=== PATIENT | male | born 1980 | race Caucasian/White ===

== ENCOUNTER 2018-06-09 02:28 | Emergency (ER) | payer BC ==
[2018-06-09] MEDS ORDERED: Ketorolac 60 MG/2 ML SDV IM ONE (02:41)
[2018-06-09] MEDS ORDERED: Cyclobenzaprine 10 MG Tab PO ONE (02:42)
[2018-06-09] MEDS ORDERED: Acetaminophen 325 MG Tab PO ONE (03:23)
--- NOTE | 2018-06-09 03:23 | EDM.PDOC ---
ED HPI GENERAL MEDICAL PROBLEM - General Chief Complaint: Back Pain or Injury Stated Complaint: SEVERE BACK PAIN Time Seen by Provider: 06/09/18 02:30 Source of Information: Reports: Patient History Limitations: Reports: No Limitations - History of Present Illness INITIAL COMMENTS - FREE TEXT/NARRATIVE: HISTORY AND PHYSICAL: History of present illness: 37-year-old male presenting to emergency department with chief complaint of lower back and with past medical history of lumbar disc herniation. Patient states that approximately 45 minutes ago he awoke and twisted to pet his dog and immediately felt excruciating left-sided lower back pain that radiated into his left lower leg. States it is burning and constant. 10 out of 10. Denies any bowel or bladder incontinence. Denies any loss of sensation. Patient does have a history of lumbar disc herniation and I was able to review his lumbar MRI in 2015 showing a large broad-based disc perfusion with mild spinal canal stenosis at L4-L5. States that he has been using "herbal" muscle relaxer but no other medications. On exam patient has no significant step-offs but significant paraspinal muscle spasms specifically from L2-S1 left-sided. No other focal neurologic deficits noted. Review of systems: As per history of present illness and below otherwise all systems reviewed and negative. Past medical history: As per history of present illness and as reviewed below otherwise noncontributory. Surgical history: As per history of present illness and as reviewed below otherwise noncontributory. Social history: No reported history of drug or alcohol abuse. Family history: As per history of present illness and as reviewed below otherwise noncontributory. Physical exam: See above H&P HEENT: Atraumatic, normocephalic, pupils reactive, negative for conjunctival pallor or scleral icterus, mucous membranes moist, throat clear, neck supple, nontender, trachea midline. Lungs: Clear to auscultation, breath sounds equal bilaterally, chest nontender. Heart: S1S2, regular, negative for clicks, rubs, or JVD. Abdomen: Soft, nondistended, nontender. Negative for masses or hepatosplenomegaly. Negative for costovertebral tenderness. Pelvis: Stable nontender. Genitourinary: Deferred. Rectal: Deferred. Extremities: Atraumatic, negative for cords or calf pain. Neurovascular unremarkable. Neuro: Awake, alert, oriented. Cranial nerves II through XII unremarkable. Cerebellum unremarkable. Motor and sensory unremarkable throughout. Exam nonfocal. Diagnostics: [] Therapeutics: Portable 60 mg IM 1 Flexeril 10 mg by mouth 1, prescription for Flexeril 10 mg by mouth 3 times a day #30 Diclofenac 100 mg PO x 1 Acetaminophen 650mg PO x 1 Holden 10-325mg PO X1, prescription for Holden 5-325mg PO q4-6 hrs #10 Impression: Lumbar back pain with radiculopathy left lower extremity Paraspinal muscle spasms History of lumbar disc herniation Plan: Initially patient did not want any narcotics secondary to driving. However his pain continued to not be relieved even with multiple different medications. He did contact his who was going to pick him up so we did give him 10 mg Holden by mouth which did help with his pain. He was discharge in good condition with instructions to call his primary care provider Dr. Lipscomb tomorrow morning in scheduling follow-up appointment. He most likely would benefit for a repeat MRI secondary to his worsening symptoms. He did not have any bowel or bladder incontinence. He was discharged with a prescription for Flexeril 10 mg by mouth 3 times a day #30. He was instructed to return to emergency department if any new or worsening symptoms. Definitive disposition and diagnosis as appropriate pending reevaluation and review of above. Lower Back Pain Score (Numeric/FACES): 9 - Related Data Allergies Allergy/AdvReac Type Severity Reaction Status Date / Time Penicillins Allergy Cannot Verified 06/09/18 02:38 Remember Home Meds: Home Meds . [No Known Home Meds] 06/09/18 [History] Past Medical History - Past Health History Medical/Surgical History: Denies Medical/Surgical History Musculoskeletal History: Reports: Back Pain, Chronic - Infectious Disease History Infectious Disease History: Reports: Chicken Pox - Past Surgical History Head Surgeries/Procedures: Reports: None Social & Family History - Tobacco Use Smoking Status *Q: Never Smoker ED ROS GENERAL - Review of Systems Review Of Systems: ROS reveals no pertinent complaints other than HPI. ED EXAM, GENERAL - Physical Exam Exam: See Below Course - Vital Signs Last Recorded V/S: Last Vital Signs Temp 96.9 F 06/09/18 02:36 Pulse 66 06/09/18 02:36 Resp 20 06/09/18 02:36 BP 146/99 H 06/09/18 02:36 Pulse Ox 99 06/09/18 02:36 - Orders/Labs/Meds Orders: Active Orders 24 hr Category Date Time Status Diclofenac Sodium [Voltaren] Med 06/09/18 03:24 Once 100 mg PO ONETIME ONE Medication Orders Diclofenac Sodium (Voltaren) 100 mg PO ONETIME ONE Stop: 06/09/18 03:25 Meds: Medications Generic Name Dose Route Start Last Admin Trade Name Freq PRN Reason Stop Dose Admin Diclofenac Sodium 100 mg 06/09/18 03:24 Voltaren PO 06/09/18 03:25 ONETIME ONE Discontinued Medications Generic Name Dose Route Start Last Admin Trade Name Freq PRN Reason Stop Dose Admin Acetaminophen 650 mg 06/09/18 03:23 Tylenol PO 06/09/18 03:24 NOW ONE Cyclobenzaprine HCl 10 mg 06/09/18 02:42 06/09/18 02:48 Flexeril PO 06/09/18 02:43 10 mg ONETIME ONE Administration Ketorolac Tromethamine 60 mg 06/09/18 02:41 06/09/18 02:48 Toradol IM 06/09/18 02:42 60 mg ONETIME ONE Administration Departure - Departure Time of Disposition: 03:41 Disposition: Home, Self-Care 01 Condition: Good Clinical Impression: Lumbar back pain with radiculopathy affecting left lower extremity - Discharge Information Referrals: Edwin Lipscomb MD [Primary Care Provider] - Forms: ED Department Discharge Additional Instructions: My general discharge The following information is given to patients seen in the emergency department who are being discharged to home. This information is to outline your options for follow-up care. We provide all patients seen in our emergency department with a follow-up referral. The need for follow-up, as well as the timing and circumstances, are variable depending upon the specifics of your emergency department visit. If you don't have a primary care physician on staff, we will provide you with a referral. We always advise you to contact your personal physician following an emergency department visit to inform them of the circumstance of the visit and for follow-up with them and/or the need for any referrals to a consulting specialist. The emergency department will also refer you to a specialist when appropriate. This referral assures that you have the opportunity for follow-up care with a specialist. All of these measure are taken in an effort to provide you with optimal care, which includes your follow-up. Under all circumstances we always encourage you to contact your private physician who remains a resource for coordinating your care. When calling for follow-up care, please make the office aware that this follow-up is from your recent emergency room visit. If for any reason you are refused follow-up, please contact the [facility] Emergency Department at and asked to speak to the emergency department charge nurse. [address] [address] Call and schedule appointment with Dr. Lipscomb tomorrow as we discussed. Be sure to tell them that you were seen in the emergency department and they wish for you to be followed up as soon as possible. Take medication as prescribed. Return to emergency department if any new or worsening symptoms as we discussed. - My Orders Last 24 Hours: My Active Orders 06/09/18 03:24 Diclofenac Sodium [Voltaren] 100 mg PO ONETIME ONE - Assessment/Plan Last 24 Hours: My Active Orders 06/09/18 03:24 Diclofenac Sodium [Voltaren] 100 mg PO ONETIME ONE
[2018-06-09] MEDS ORDERED: Diclofenac Sodium 50 MG Tab.EC PO ONE (03:24)
[2018-06-09] MEDS ORDERED: Acetaminophen 325 MG Tab ONE (03:34)
[2018-06-09] MEDS ORDERED: Acetaminophen/HYDROcodone 325-10 MG Tab PO ONE (03:35)
[2018-06-09 03:52] VITALS: BP 128/86
== END 2018-06-09 03:55 | disposition home or self-care (01) ==
LOC: MW.ED 02:28
DX: M54.16 Radiculopathy, lumbar region (principal); M62.830 Muscle spasm of back; Z88.0 Allergy status to penicillin
CPT/HCPCS: 96372; 99283; A9270; J1885

== ENCOUNTER 2019-07-11 09:21 | Emergency (ER) | payer BC ==
[2019-07-11 09:31] VITALS: BP 131/73; PULSE 96
--- NOTE | 2019-07-11 10:08 | CR ---
INDICATION: Pain, injury. TECHNIQUE: Three views. FINDINGS: No radiographically visible fracture/dislocation. No acute osseous abnormality is identified. Mild soft tissue swelling about the wrist. Bone density is normal. IMPRESSION: No evidence of fracture. Soft tissue swelling is present. If signs/symptoms continue, and if clinically indicated, consider delayed/repeat views. Dictated by Harlan Kerr MD @ Jul 11 2019 10:06AM Signed by Dr. Harlan Kerr @ Jul 11 2019 10:07AM
--- NOTE | 2019-07-11 10:14 | EDM.PDOC ---
ED HPI GENERAL MEDICAL PROBLEM - General Chief Complaint: Upper Extremity Injury/Pain Stated Complaint: SWELLING AND PAIN LEFT WRIST Time Seen by Provider: 07/11/19 09:56 - History of Present Illness INITIAL COMMENTS - FREE TEXT/NARRATIVE: HISTORY AND PHYSICAL: History of present illness: Patient is a 38-year-old white male presents with a concern of left wrist pain patient noted a tender nodule in the volar aspect medially of his left wrist he denies any direct trauma. Review of systems: As per history of present illness and below otherwise all systems reviewed and negative. Past medical history: As per history of present illness and as reviewed below otherwise noncontributory. Surgical history: As per history of present illness and as reviewed below otherwise noncontributory. Social history: No reported history of drug or alcohol abuse. Family history: As per history of present illness and as reviewed below otherwise noncontributory. Physical exam: HEENT: Atraumatic, normocephalic, pupils reactive, negative for conjunctival pallor or scleral icterus, mucous membranes moist, throat clear, neck supple, nontender, trachea midline. Lungs: Clear to auscultation, breath sounds equal bilaterally, chest nontender. Heart: S1S2, regular, negative for clicks, rubs, or JVD. Abdomen: Soft, nondistended, nontender. Negative for masses or hepatosplenomegaly. Negative for costovertebral tenderness. Pelvis: Stable nontender. Genitourinary: Deferred. Rectal: Deferred. Extremities: Left wrist is tender nodule on the volar aspect medially consistent with likely ganglionic cyst there is no snuffbox tenderness neurovascular exams unremarkable Neuro: Awake, alert, oriented. Cranial nerves II through XII unremarkable. Cerebellum unremarkable. Motor and sensory unremarkable throughout. Exam nonfocal. Diagnostics: X-ray left wrist Therapeutics: Velcro splint Impression: #1 left wrist pain #2 nodule left wrist probable ganglionic cyst Definitive disposition and diagnosis as appropriate pending reevaluation and review of above. Left Wrist Pain Score (Numeric/FACES): 4 - Related Data Allergies Allergy/AdvReac Type Severity Reaction Status Date / Time Penicillins Allergy Cannot Verified 07/11/19 09:28 Remember Home Meds: Home Meds . [No Known Home Meds] 06/09/18 [History] Past Medical History - Past Health History Medical/Surgical History: Denies Medical/Surgical History Musculoskeletal History: Reports: Back Pain, Chronic - Infectious Disease History Infectious Disease History: Reports: Chicken Pox - Past Surgical History Head Surgeries/Procedures: Reports: None Social & Family History - Family History Family Medical History: Noncontributory - Tobacco Use Smoking Status *Q: Never Smoker - Caffeine Use Caffeine Use: Reports: Coffee - Recreational Drug Use Recreational Drug Use: No Review of Systems - Review of Systems Review Of Systems: ROS reveals no pertinent complaints other than HPI. ED EXAM, GENERAL - Physical Exam Exam: See Below (See dictation) Course - Vital Signs Last Recorded V/S: Last Vital Signs Temp 36.2 C 07/11/19 09:28 Pulse 96 07/11/19 09:28 Resp 16 07/11/19 09:28 BP 131/73 07/11/19 09:28 Pulse Ox 96 07/11/19 09:28 Departure - Departure Time of Disposition: 10:13 Disposition: Home, Self-Care 01 Condition: Good Clinical Impression: Wrist pain, Ganglion cyst - Discharge Information Referrals: Edwin Lipscomb MD [Primary Care Provider] - Additional Instructions: The following information is given to patients seen in the emergency department who are being discharged to home. This information is to outline your options for follow-up care. We provide all patients seen in our emergency department with a follow-up referral. The need for follow-up, as well as the timing and circumstances, are variable depending upon the specifics of your emergency department visit. If you don't have a primary care physician on staff, we will provide you with a referral. We always advise you to contact your personal physician following an emergency department visit to inform them of the circumstance of the visit and for follow-up with them and/or the need for any referrals to a consulting specialist. The emergency department will also refer you to a specialist when appropriate. This referral assures that you have the opportunity for followup care with a specialist. All of these measure are taken in an effort to provide you with optimal care, which includes your followup. Under all circumstances we always encourage you to contact your private physician who remains a resource for coordinating your care. When calling for followup care, please make the office aware that this follow-up is from your recent emergency room visit. If for any reason you are refused follow-up, please contact the [facility] emergency department at and asked to speak to the emergency department charge nurse. [facility] Specialty Care - General Surgery Professional Building [address] [place] [address], [address] [place] [address] Splint as directed diclofenac as prescribed follow-up Gen. surgery above return as needed as discussed
== END 2019-07-11 10:39 | disposition home or self-care (01) ==
LOC: MW.ED 09:21
DX: M67.432 Ganglion, left wrist (principal); Z88.0 Allergy status to penicillin
CPT/HCPCS: 73110-26-LT; 73110-LT; 99283-25

== ENCOUNTER 2022-07-13 07:34 | Emergency (ER) | payer BC ==
[2022-07-13] MEDS ORDERED: Sodium Chloride 0.9% 10 ML Syringe FLUSH PRN (08:04)
[2022-07-13] MEDS ORDERED: Sodium Chloride 0.9% 2.5 ML Syringe FLUSH PRN (08:04)
[2022-07-13] MEDS ORDERED: Sodium Chloride 0.9% 1,000 ML IV ONE (08:04)
[2022-07-13] MEDS ORDERED: Prochlorperazine 10 MG/2 ML SDV IVPUSH ONE (08:08)
[2022-07-13] MEDS ORDERED: Meclizine 25 MG Tab PO ONE (08:17)
[2022-07-13 08:32] LABS: BLOOD UREA NITROGEN,BUN 18 mg/dL (7.0-18.0); CARBON DIOXIDE,CO2 24.9 mmol/L (21.0-32.0); CHLORIDE,CL 104 mmol/L (98-107); ESTIMATED GFR 86 mL/min (>60); GLUCOSE RANDOM 110 mg/dL (74-106); POTASSIUM,K 4.3 mmol/L (3.5-5.1); SODIUM,NA 140 mmol/L (136-148)
[2022-07-13] MEDS ORDERED: Iopamidol 755 MG/ML 500 ML Multipack Bottle IVPUSH ONE (09:32)
[2022-07-13 13:15] VITALS: PULSE 55
[2022-07-13 14:28] VITALS: BP 100/67
== END 2022-07-13 14:29 | disposition home or self-care (01) ==
LOC: MW.ED 07:34
DX: R42 Dizziness and giddiness (principal); R93.89 Abnormal findings on diagnostic imaging of other specified body structures; Z88.0 Allergy status to penicillin
CPT/HCPCS: 36415; 70450; 70496; 70498; 70544; 70547; 70551; 80053; 84484; 85025; 93005; 96361; 96374; 99284; A9270; J0780; J3490; J7030; Q9967; 99285

== ENCOUNTER 2023-11-16 10:02 | Emergency (ER) | payer BC ==
[2023-11-16 11:13] LABS: CORONAVIRUS COVID-19 NAA NEGATIVE (NEGATIVE); INFLUENZA A NAA NEGATIVE (NEGATIVE); INFLUENZA B NAA POSITIVE (NEGATIVE); RESPIRATORY SYNCYTIAL VIR NAA NEGATIVE (NEGATIVE)
[2023-11-16 11:55] VITALS: BP 135/75; PULSE 93
== END 2023-11-16 11:55 | disposition home or self-care (01) ==
LOC: MW.ED 10:02
DX: J10.1 Influenza due to other identified influenza virus with other respiratory manifestations (principal); Z88.0 Allergy status to penicillin
CPT/HCPCS: 0241U; 87651; 99283; 99282